=== PATIENT | male | born 1995 | race Two or more races ===

== ENCOUNTER 2019-05-03 15:03 | Emergency (ER) | payer OTHER ==
[~2019-05-03] VITALS: Ht 185.4 cm; Wt 90.7 kg
[~2019-05-03 15:03] MED LIST: CEPH-37 PO
[2019-05-03 16:03] LABS: Basophils # (auto) 0.1 uL; Basophils % (auto) 0.5 % (0.0-2.0); Eosinophils # (auto) 0.2 uL; Hematocrit 42.3 % (41.0-53.0); Hemoglobin 14.8 g/dL (13.5-17.5); Lymphocytes # (auto) 1.7 uL; Lymphocytes % (auto) 15.7 % (10.0-50.0); Mean Corpuscular Hemoglobin 30.3 pg (28.0-32.0); Mean Corpuscular Volume 86.7 fL (80.0-100.0); Monocytes # (auto) 0.9 uL; Monocytes % (auto) 7.8 % (0.0-12.0); Neutrophils # (auto) 8.1 uL; Platelet Count (auto) 234 10^3/uL (140-450); Red Blood Cells 4.87 10^6/uL (4.5-5.90); Red Cell Distribution Width 12.5 % (11.8-14.3); White Blood Cell 10.9 10^3/uL (4.4-10.8)
[2019-05-03 16:22] LABS: Albumin 3.7 g/dL (3.4-5.0); Calcium 8.6 mg/dL (8.5-10.1); Potassium 3.9 mmol/L (3.5-5.1)
[2019-05-03 16:24] LABS: BUN/Creatinine Ratio 13.3; Bilirubin, Total 0.4 mg/dL (0.2-1.0); Total Protein 8.1 g/dL (6.4-8.2)
[2019-05-03] MEDS ORDERED: IBUPROFEN 600 MG TAB PO ONE (17:30)
[2019-05-03] MEDS ORDERED: cefTRIAXone SOD 1,000 MG VL IM ONE (17:30)
[2019-05-03 18:20] VITALS: BP 114/51
== END 2019-05-03 19:53 ==
LOC: EEVIPCON 15:04 → ER 15:04
DX: L40.9 Psoriasis, unspecified (principal); R23.8 Other skin changes
CPT/HCPCS: 36415; 80053; 85025; 87077; 87186; 87205; 96372; 99283; J0696